=== PATIENT | female | born 2000 | race Hispanic/Latino ===

== ENCOUNTER 2021-12-06 12:33 | Emergency (ER) | payer OTHER ==
--- NOTE | 2021-12-06 13:30 | Event Note ---
ED Screening Note Date of service: 12/06/21 Time: 13:00 ED Screening Note: This initial assessment/diagnostic orders/clinical plan/treatment(s) is/are subject to change based on patients health status, clinical progression and re- assessment by fellow clinical providers in the ED. Further treatment and workup at subsequent clinical providers discretion. Patient/guardian urged not to elope from the ED as their condition may be serious if not clinically assessed and managed. Not seen by provider - labs and US entered to expedite visit. 6wks with small amount of vaginal clots per triage nurse. Initial orders include: My Active Orders 12/06/21 13:04 Basic Metabolic Panel Stat Complete Blood Count Auto Diff Stat HCG,Quantitative Stat Urinalysis Complete Stat 12/06/21 13:07 Type and Screen Stat US OB <= 14 weeks fetus Urgent 12/06/21 13:08 US Bladder Residual/Pelvic Pre ROUTINE
[2021-12-06 14:40] LABS: Basophils % (Auto) 0.1 % (0.0-1.8); Eosinophils % (Auto) 0.6 % (0.0-4.3); Hematocrit 38.3 % (30.3-42.9); Hemoglobin 13.3 gm/dl (10.1-14.3); Lymphocytes # (Auto) 1.4 K/mm3 (1.2-5.4); Lymphocytes % (Auto) 18.3 % (13.4-35.0); Mean Corpuscular HGB Conc 35 % (30-34); Mean Corpuscular Volume 87 fl (79-97); Monocytes # (Auto) 0.4 K/mm3 (0.0-0.8); Monocytes % (Auto) 5.7 % (0.0-7.3); Platelet Count 191 K/mm3 (140-440); Red Blood Count 4.39 M/mm3 (3.65-5.03); Red Cell Distribution Width 13.3 % (13.2-15.2)
[2021-12-06 14:53] LABS: BUN/Creatinine Ratio 10; Blood Urea Nitrogen 8 mg/dL (7-17); Calcium 9.6 mg/dL (8.4-10.2); Hemolysis Index 12
--- NOTE | 2021-12-06 16:09 | Ultrasound Report ---
ULTRASOUND OBSTETRIC INDICATION: Vaginal bleeding. TECHNIQUE: Transabdominal. COMPARISON: None available. FINDINGS: GESTATIONAL SAC: Well-defined oval shape and intrauterine in location. Mean sac diameter is 1.75 cm, consistent with an estimated age of 6.5 weeks. YOLK SAC: No significant abnormality. EMBRYO/FETUS: The technologist reports visualizing a pole. However it is difficult to see and c rown-rump length cannot be measured. heart rate measures 152 bpm. ADNEXA: No significant abnormality. FREE FLUID: None. ADDITIONAL FINDINGS: None. IMPRESSION: 1. Early living single intrauterine with an estimated age of 6.5 weeks. 2. No acute findings. Signer Name: Tj Willard MD Signed: 12/06/2021 4:04 PM Workstation Name: [email or web address]
[2021-12-06 17:53] LABS: Bilirubin,Urine NEG (Negative); Blood,Urine SM (Negative); Color,Urine Yellow (Yellow); Protein,Urine <15 mg/dL mg/dL (Negative)
[2021-12-06 17:59] LABS: Amorphous Crystals,Urine 1+; Mucus,Urine 2+ /HPF
--- NOTE | 2021-12-06 19:32 | Emergency Department Report ---
ED HPI - General Chief complaint: Vaginal Bleeding Stated complaint: 6 WKS PREG/BLEEDING Source: patient Mode of arrival: Ambulatory Limitations: No Limitations - History of Present Illness Initial comments: Patient is 6 weeks with a last menstrual period of 815 who presents stating she has been having some spotting and clotting since this morning. She states that onset it was bright red blood with wiping and then she passed a small clot. She states she feels better she did have some cramping with it but that that has improved and she has not had enough bleeding to warrant using a pad. She estimates she has not had enough to soak a full pad throughout the day. She is a 1 para 0. Denies fevers chills dysuria, flank pain nausea or vomiting. She has not had her first OB visit yet. She is sexually active with 1 partner and does not believe she has a risk for STD. Associated symptoms: denies: nausea/vomiting, vaginal discharge, dysuria, headache, vision changes, malaise, dysparuenia, rash, shortness of breath, syncope, weakness - Related Data Previous Rx's Medication Instructions Recorded Last Taken Type Vit No.179/Iron/Folic 1 each PO DAILY #30 tab 12/06/21 Unknown Rx [ Tablet] Allergies Allergy/AdvReac Type Severity Reaction Status Date / Time No Known Allergies Allergy Verified 12/06/21 12:59 ED Review of Systems ROS: Stated complaint: 6 WKS PREG/BLEEDING Other details as noted in HPI Constitutional: denies: chills, fever Eyes: denies: eye pain, eye discharge, vision change ENT: denies: ear pain, throat pain Respiratory: denies: cough, shortness of breath, wheezing Cardiovascular: denies: chest pain, palpitations Endocrine: no symptoms reported Gastrointestinal: denies: nausea, diarrhea Genitourinary: as per HPI Musculoskeletal: denies: back pain, joint swelling, arthralgia Skin: denies: rash, lesions Neurological: denies: headache, weakness, paresthesias Psychiatric: denies: anxiety, depression Hematological/Lymphatic: denies: easy bleeding, easy bruising ED Past Medical Hx - Past Medical History Previous Medical History?: No - Surgical History Past Surgical History?: No - Social History Smoking Status: Never Smoker Substance Use Type: None - Medications Home Medications: Home Medications Medication Instructions Recorded Confirmed Last Taken Type Vit No.179/Iron/Folic 1 each PO DAILY #30 tab 12/06/21 Unknown Rx [ Tablet] ED Physical Exam - General Limitations: No Limitations General appearance: alert, in no apparent distress - Head Head exam: Present: atraumatic, normocephalic - Eye Eye exam: Present: normal appearance - ENT ENT exam: Present: mucous membranes moist - Neck Neck exam: Present: normal inspection - Respiratory Respiratory exam: Present: normal lung sounds bilaterally. Absent: respiratory distress - Cardiovascular Cardiovascular Exam: Present: regular rate, normal rhythm. Absent: systolic murmur, diastolic murmur, rubs, gallop - GI/Abdominal GI/Abdominal exam: Present: soft, normal bowel sounds. Absent: distended, tenderness, guarding, rebound, rigid - External exam: Present: normal external exam Speculum exam: Present: vaginal bleeding (Scant), other (Cervical os closed). Absent: foreign body Bi-manual exam: Present: uterine enlargement. Absent: cervical motion ten dernes, adnexal tenderness, adnexal mass, uterine tenderness - Extremities Exam Extremities exam: Present: normal inspection - Back Exam Back exam: Present: normal inspection - Neurological Exam Neurological exam: Present: alert, oriented X3 - Psychiatric Psychiatric exam: Present: normal affect, normal mood - Skin Skin exam: Present: warm, dry, intact, normal color. Absent: rash ED Course Vital Signs 12/06/21 12:55 Temperature 98.8 F Pulse Rate 65 Respiratory 18 Rate Blood Pressure 101/58 [Right] O2 Sat by Pulse 100 Oximetry - Reevaluation(s) Reevaluation #1: 12/06/21 19:49 Offered patient Rocephin for gonorrhea and she declines. She understands that she will have to follow-up with [facility] if gonorrhea chlamydia test come back positive. ED Medical Decision Making - Lab Data Result diagrams: 12/06/21 14:15 12/06/21 14:15 - Radiology Data Radiology results: report reviewed, image reviewed [facility] [address] [place] [address] Ultrasound Report Signed Patient: DAVIN STOUT MR#: [id number] 9 : 2000 Acct:[id number] Age/Sex: 21 / F ADM Date: 12/06/21 Loc: ED Attending Dr: Ordering Physician: JOELLE LEYVA Date of Service: 12/06/21 Procedure(s): US OB <= 14 weeks fetus Accession Number(s): [id number] cc: JOELLE LYEVA ULTRASOUND OBSTETRIC INDICATION: Vaginal bleeding. TECHNIQUE: Transabdominal. COMPARISON: None available. FINDINGS: GESTATIONAL SAC: Well-defined oval shape and intrauterine in location. Mean sac diameter is 1.75 cm, consistent with an estimated age of 6.5 weeks. YOLK SAC: No significant abnormality. EMBRYO/FETUS: The technologist reports visualizing a pole. However it is difficult to see and crown-rump length cannot be measured. heart rate measures 152 bpm. ADNEXA: No significant abnormality. FREE FLUID: None. ADDITIONAL FINDINGS: None. IMPRESSION: 1. Early living single intrauterine with an estimated age of 6.5 weeks. 2. No acute findings. Signer Name: Tj Willard MD Signed: 12/06/2021 4:04 PM Workstation Name: [email or web address] Transcribed By: [place] Dictated By: Tj Willard MD Electronically Authenticated By: Tj Willard MD Signed Date/Time: 12/06/211603 DD/ 01 TD/TT: Print - Medical Decision Making This is a 1 para 0 with a 6-week IUP with a last menstrual period of 815. She is having vaginal spotting with some mild cramping that actually has improved throughout the day. Urinalysis negative for UTI. hCG 30,000/consistent with dates. Normal white count. She is O+. 6-week IUP. Discussed pad count with her and to return if she is soaking more than 1 pad an hour or she develops any fever. She will need [employer] [facility] follow-up sometime within the next 2 to 3 days. Critical care attestation.: If time is entered above; I have spent that time in minutes in the direct care of this critically ill patient, excluding procedure time. ED Disposition Clinical Impression: Threatened Disposition: 01 HOME / SELF CARE / HOMELESS Is pt being admited?: No Condition: Stable Instructions: Threatened Miscarriage Additional Instructions: Pelvic rest (no tampons, douching or intercourse until cleared by [employer]). Push fluids. Pad count: If you soak more than 1 pad per hour you must return to the emergency department. Also return for fever. Follow-up with [employer] [facility] this week. Prescriptions: Vit No.179/Iron/Folic [ Tablet] 1 each PO DAILY #30 tab Referrals: LIDIA ALEMAN MD [Staff Physician] - 3-5 Days Forms: Work/School Release Form(ED) Time of Disposition: 19:53
[2021-12-06 20:33] VITALS: BP 101/53
== END 2021-12-06 20:23 | disposition home or self-care (01) ==
LOC: ED 12:33
DX: O20.0 Threatened abortion (principal); Z3A.01 Less than 8 weeks gestation of pregnancy; Z79.899 Other long term (current) drug therapy
CPT/HCPCS: 36415; 76801; 80048; 81001; 84702; 85025; 86850; 86900; 86901; 87591; 99284